=== PATIENT | female | born 1955 | race Caucasian/White ===

== ENCOUNTER → 2019-06-10 | Outpatient (CLI) | payer OTHER | LOC: COL.RAD 09:30 | DX: M46.95 Unspecified inflammatory spondylopathy, thoracolumbar region (principal); M51.35 Other intervertebral disc degeneration, thoracolumbar region; R10.32 Left lower quadrant pain; Z90.710 Acquired absence of both cervix and uterus | CPT/HCPCS: Q9967 ==

== ENCOUNTER → 2019-07-05 | Outpatient (CLI) | payer OTHER | LOC: COL.RAD 08:21 | DX: N13.30 Unspecified hydronephrosis (principal) | CPT/HCPCS: Q9967 ==